=== PATIENT | male | born 1995 | race Caucasian/White ===

== ENCOUNTER 2020-11-15 18:41 | Emergency (ER) | payer OTHER, SELFPAY ==
--- NOTE | 2020-11-15 | ECG_ITS ---
Test Reason : SHORTNESS OF BREATH Blood Pressure : / mmHG Vent. Rate : 064 BPM Atrial Rate : 064 BPM P-R Int : 194 ms QRS Dur : 084 ms QT Int : 356 ms P-R-T Axes : 060 025 024 degrees QTc Int : 367 ms Normal sinus rhythm Normal ECG No previous ECGs available Referred By: Generic ED Physician Electronically Signed By:Segundo Mora
--- NOTE | ~2020-11-15 | XR_ITS ---
EXAMINATION: XR CHEST CLINICAL INFORMATION: Shortness of breath COMPARISON: 02/28/2020 TECHNIQUE: Frontal view of the chest was obtained. FINDINGS: No significant abnormality is noted involving the heart, lungs, mediastinum, bony thorax or soft tissues. XR/XR chest 1V IMPRESSION: Unremarkable examination.
[2020-11-15 19:45] VITALS: BP 134/70; PULSE 68; RESP 18; TEMP 36.9; O2SAT 99; BMI 26.7
--- NOTE | 2020-11-15 21:02 | ED.SOB ---
HPI - SOB/Dyspnea General Chief Complaint: Dyspnea Stated Complaint: sob Time Seen by Provider: 11/15/20 20:15 Source: patient Mode of arrival: ambulatory Limitations: no limitations History of Present Illness HPI Narrative: Patient comes emergency room complaining of shortness of breath for 2 weeks. Patient states he tested positive for COVID-19 on 10/25/2020. Patient complaining of worsening shortness of breath and left-sided sharp chest pain worse with inspirations. Patient is known to be asthmatic, states that shortness of breath is different. Patient denies fever, no vomiting or diarrhea. The patient states he is also on treatment for HIV, does not know his last CD4 count p.m., last time his infectious Disease was over a year ago Related Data Allergies Allergy/AdvReac Type Severity Reaction Status Date / Time ibuprofen [IBUPROFEN] Allergy Unknown SWELLING, Verified 11/15/20 19:44 eye swollen Review of Systems Review of Systems: Constitutional : No Weight loss, No Fever, No Chills, No Night Sweats, No Fatigue, No Malaise ENT/Mouth : No Hearing loss, No Ear Pain, No Nasal Congestion, No Sinus Pain, No Hoarseness, No sore throat, No Rhinorrhea, No Swallowing Difficulty Eyes: No Eye Pain, No Swelling, No Redness, No Foreign Body, No Discharge, No Vision Changes Cardiovascular : Sharp left-sided Chest Pain, No Orthopnea, No Edema, No Palpitations Respiratory : No Cough, No Sputum, intermittent Wheezing, No Smoke Exposure, continues mild shortness of breath Gastrointestinal : No Nausea, No Vomiting, No Diarrhea, No Constipation, No abdominal Pain, No Hematochezia, No Melena Genitourinary : no irregular bleeding, No Dysuria, No Urinary Frequency, No Hematuria, No Urinary Incontinence, No Urgency, No Flank Pain, No Urinary Flow Changes, No Hesitancy Musculoskeletal : No joint pain, No Myalgias, No Joint Swelling Skin : No Skin Lesions, No rash Neuro : No Weakness, No Numbness, No Paresthesias, No Loss of Consciousness, No Dizziness, No Headache Psych : No Anxiety/Panic, No Depression, No SI/HI/AH/VH, No Social Issues, Heme/Lymph: No Bruising, No Bleeding,No Lymphadenopathy Endocrine : No Polyuria, No Polydipsia, No Temperature Intolerance PMFSH Past Medical History Medical History Asthma HIV disease Social History Social History Advance Directives: No Advance Directives Information Provided: Yes Physical Exam Vital Signs: Vital Signs: Last Vital Signs Temp 98.4 F 11/15/20 19:45 Pulse 68 11/15/20 19:45 Resp 18 11/15/20 19:45 BP 134/70 11/15/20 19:45 Pulse Ox 99 11/15/20 19:45 Body Mass Index 26.7 Appearance: Alert. Oriented X3. No acute distress. Eyes: Pupils equal, round and reactive to light. ENT: Pharynx normal. Neck: Normal inspection. Neck supple. No lymph nodes noted. No crepitus CVS: Normal heart rate and rhythm. Pulses normal. Normal S1 and S2 Respiratory: No respiratory distress. Breath sounds normal. No Wheezing. No rales Abdomen: Soft and nontender. No rigidity. No distention. good BS x4 Skin: Skin warm and dry. Normal skin color. Normal skin turgor. Extremities: No lower extremity edema. No lower extremity edema. No Lacerations. No Rash Neuro: Oriented X 3. No motor deficit. No sensory deficit. Moving all extermities. No slurred speech. Course Course Course Narrative: I was informed by the patient's nurse that the patient declined the EKG/blood work, stated that he had a date and needed to leave immediately to get ready for his date. Before patient eloped, I explained to the patient that we were going to the blood work, rule out PE. Patient did not want to get tested for COVID, stated he knows he is positive Discharge Plan Discharge Clinical Impression: Breath shortness, Chest pain Patient Disposition: Elopement
== END 2020-11-15 23:19 | disposition left against medical advice (07) ==
PROVIDERS: Emergency Provider Emergency Medicine; PCP Internal Medicine
DX: R06.02 Shortness of breath (principal); R07.9 Chest pain, unspecified; Z86.16 Personal history of COVID-19
CPT/HCPCS: 71045; 93005; 99283; 99284

== ENCOUNTER 2021-04-27 05:54 | Emergency (ER) | payer OTHER, SELFPAY ==
--- NOTE | ~2021-04-27 | CT_ITS ---
EXAMINATION: CT ABDOMEN AND PELVIS WITH CONTRAST CLINICAL INFORMATION: Umbilical vein, right lower quadrant pain. COMPARISON: CT chest 04/27/2021, chest radiographs 11/15/2020. TECHNIQUE: Multidetector volumetric images were obtained from the superior aspect of the liver through the pubic symphysis following administration 85 mL of Omnipaque 350 intravenous contrast. Sagittal and coronal reformatted images were obtained on the technologist's workstation. CT chest also performed and described in separate report. Oral contrast: No This CT examination was performed using dose optimization techniques as appropriate, variously including the following: *Automated exposure control *Adjustment of mA and/or kV according to patient size (this includes techniques or standardized protocols for targeted exams where dose is matched to indication/reason for exam; i.e. extremities or head) *Use of iterative reconstruction technique DLP: 754 mGy-cm FINDINGS: LUNG BASES: The visualized lung bases are unremarkable. LIVER, GALLBLADDER, AND BILIARY TREE: The liver is normal in size, shape, and attenuation. No focal hepatic lesion or biliary ductal dilatation is present. The gallbladder is unremarkable with no evidence of radiopaque gallstones, gallbladder wall thickening, or obvious pericholecystic inflammatory changes. PANCREAS: Unremarkable. SPLEEN: Within normal size. Incidental splenule left upper quadrant under 1.5 cm. ADRENAL GLANDS: Unremarkable. KIDNEYS AND URETERS: The kidneys are normal in size, shape, and attenuation. No hydronephrosis, hydroureter, or calculi seen. No perinephric stranding. BLADDER: Unremarkable. GASTROINTESTINAL TRACT: There is no bowel obstruction or focal inflammatory changes in the bowel or mesentery. The appendix is normal. There is no ascites or fluid collection. No pneumatosis or free air. There is moderate stool right colon and rectosigmoid. ABDOMINAL WALL: Borderline fat-containing umbilical hernia under 2 cm. LYMPH NODES: No lymphadenopathy. VASCULAR: Unremarkable. PELVIC VISCERA: Unremarkable. OSSEOUS STRUCTURES: Unremarkable. CT/CT abdomen pelvis w con IMPRESSION: 1. No bowel obstruction or focal inflammatory changes. Normal appendix. 2. Borderline fat-containing umbilical hernia under 2 cm. 3. No cholelithiasis or ductal dilatation. 4. No hydronephrosis or perinephric stranding.
--- NOTE | ~2021-04-27 | CT_ITS ---
EXAMINATION: CT CHEST WITH CONTRAST CLINICAL INFORMATION: Cough, positive PPD. COMPARISON: Chest radiograph 11/15/2020. TECHNIQUE: Multidetector volumetric CT imaging of the chest was obtained after the administration of 85 mL of Omnipaque 350 intravenous contrast without immediate adverse reactions. Axial MIP volume rendering provided. Sagittal and coronal reformatted images were obtained. CT abdomen and pelvis also performed for right lower quadrant pain, described in separate report. This CT examination was performed using dose optimization techniques as appropriate, variously including the following: *Automated exposure control *Adjustment of mA and/or kV according to patient size (this includes techniques or standardized protocols for targeted exams where dose is matched to indication/reason for exam; i.e. extremities or head) *Use of iterative reconstruction technique DLP: 456 mGy-cm FINDINGS: LUNGS: The lungs are clear and there is no airspace consolidation or groundglass opacity. No mass or cavitary lesion. 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 The thoracic aorta is normal in caliber. There is no aneurysmal enlargement or dissection. The central vasculature enhances normally. No central pulmonary embolism. Heart size normal. No right ventricular strain or pericardial effusion. No hilar or mediastinal adenopathy. PLEURA: There is no pleural effusion. No pleural mass or thickening. AXILLA: No lymphadenopathy. UPPER ABDOMEN: CT abdomen and pelvis described in separate report. OSSEOUS STRUCTURES: Unremarkable. CT/CT chest w con IMPRESSION: 1. Lungs clear. No hilar or mediastinal adenopathy. 2. 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 3. CT abdomen and pelvis described in separate report.
[2021-04-27 05:58] VITALS: BP 124/87; PULSE 73; RESP 18; TEMP 36.9; O2SAT 99; BMI 26.2
[2021-04-27 06:25] LABS: COVID-19 Test Negative (Negative)
--- NOTE | 2021-04-27 06:48 | P.HPHOSP_ITS ---
History of Present Illness Date of Service: 04/27/21 [facility] Medical History Asthma HIV disease Social History Advance Directives: No Advance Directives Information Provided: No Meds Allergies Allergy/AdvReac Type Severity Reaction Status Date / Time ibuprofen [IBUPROFEN] Allergy Unknown SWELLING, Verified 11/15/20 19:44 eye swollen Physical Exam Vital Signs and Narrative: Vital Signs: Last Vital Signs Temp 98.5 F 04/27/21 05:58 Pulse 73 04/27/21 05:58 Resp 18 04/27/21 05:58 BP 124/87 04/27/21 05:58 Pulse Ox 99 04/27/21 05:58 Body Mass Index 26.2 Results Labs Labs: Laboratory Results - last 24 hr 04/27/21 06:06 COVID-19 ([facility]) Negative COVID-19 Clin Com See Note
--- NOTE | 2021-04-27 08:34 | ED.ABDPAIN ---
HPI - Abdominal Pain General Chief Complaint: Abdominal Pain Stated Complaint: Vomiting Stomach pain Time Seen by Provider: 04/27/21 07:58 Source: patient Mode of arrival: ambulatory Limitations: no limitations History of Present Illness HPI narrative: 25-year-old male HIV positive, viral load below detectable limits, compliant with medications, presents emergency department for evaluation of cough x4 days and abdominal pain. Patient states approximately 2 weeks prior he was taking a shower and when he got out of the shower he had periumbilical pain, states that he was evaluated at urgent care clinic and they did not find a cause for his pain. The pain eventually resolved. He statesthat this morning he developed gradual onset of sharp, periumbilical pain which was intermittent and was 8/10. He also developed a epigastric burning pain that he states feels like his stomach is empty but he was able to eat without difficulty. He denied any nausea but he did have several episodes of vomiting. He denied frequency, urgency or dysuria. The patient states he has had a cough for 4 days. The cough is nonproductive. He has felt nasal congestion. He denied chest pain or shortness of breath. Patient is HIV positive and he states several months ago he had a positive PPD test with a negative chest x-ray. He states that his provider wanted to get a CT scan of his chest but he never followed up to get this test ordered. Patient's vaccinated against COVID-19 with the Moderna vaccine. He got his 2nd vaccination in February of 2021. Related Data Allergies Allergy/AdvReac Type Severity Reaction Status Date / Time ibuprofen [IBUPROFEN] Allergy Unknown SWELLING, Verified 11/15/20 19:44 eye swollen Review of Systems Review of Systems Yes all other systems are reviewed and are negative Physical Exam Vital Signs: Vital Signs: Last Vital Signs Temp 98.1 F 04/27/21 09:16 Pulse 63 04/27/21 09:16 Resp 16 04/27/21 09:16 BP 122/69 04/27/21 09:16 Pulse Ox 99 04/27/21 09:16 Body Mass Index 26.2 Const: General: cooperative and no acute distress Orientation/consciousness: oriented to person and oriented to place Limitations: no limitations HENMT: Head: Yes normal to inspection, Yes normocephalic and Yes atraumatic Ears: external ears normal General nose exam: Normal external nose present Face and sinus: Yes normal facial exam Mouth: Normal oral and palatal mucosa present Throat: Yes posterior oropharynx normal Eyes: General: appearance normal, both eyes and all related structures Pupils: Equal, round and reactive pupils present Neck: Neck: Yes normal visual inspection, Yes no lymphadenopathy, Yes trachea midline and Yes supple Chest: Chest palpation & inspection: normal inspection of the chest and normal palpation of entire chest wall Resp: Effort & Inspection: normal respiratory effort and able to speak in complete sentences Auscultation: clear to auscultation bilaterally Cardio: Rate: regular rate Rhythm: regular rhythm Heart sounds: S1 normal heart sound present, S2 normal heart sound present and no murmurs GI: Inspection: Yes normal to inspection Palpation (GI): Soft to palpation, Tenderness to palpation present (GI) in the RLQ (Moderate), periumbilically (Moderate tenderness, small tender mass noted) and suprapubicly (Moderate); Negative for not in the RUQ and no guarding Auscultation: normal bowel sounds : General: Yes no CVA tenderness Back/Spine/Pelvis: Back: no CVA tenderness Skin: General skin exam: no rashes or lesions noted Neuro: General: oriented to person and oriented to place Cranial nerves: Yes CN's II-XII intact bilaterally and Yes Equal, round and reactive pupils present Cognition (Neuro): normal cognition Motor exam (neuro): 5/5 motor strength present throughout Extrem: General: Yes normal to inspection Psych: Appearance: grossly normal Speech and movement: Normal speech and movement present Affect: normal affect Attitude: cooperative Thought process: Normal thought process present Thought content: Normal thought content present Course Course Course Narrative: 25-year-old male HIV positive, recently PPD positive with a negative chest x-ray, vaccinated for COVID-19 who presents to the emergency department for cough x4 days and abdominal pain. Vital signs were normal. Abdominal exam did reveal right lower quadrant and suprapubic tenderness. He also has umbilical tenderness with a small palpable mass. Given the patient's cough and abdominal pain, , I ordered a CT scan of the chest with IV contrast and a CT scan of the abdomen and pelvis with IV contrast as well. Laboratory evaluation was also ordered to include CBC, CMP, lipase, urinalysis. COVID-19 test was also ordered. Patient's pain will be treated with morphine 4 mg IV and Zofran 4 mg IV. Is also ordered to get normal saline x1 L. 1212: The patient's laboratory evaluation was unremarkable. Urinalysis was negative. CT scan of the chest revealed no acute process. The patient's CT scan of the abdomen pelvis revealed a small umbilical hernia was containing fat only. The patient's pain resolved with the above treatment. The patient will be referred to the on-call surgeon for evaluation of the umbilical hernia. The patient will be referred back to his infectious disease doctor determine if he needs further treatment of his positive PPD. the patient was advised to take Tylenol and ibuprofen for his pain, he was discharged with verbal and printed instructions. MDM - Abdominal Pain Lab Data Result diagrams: 04/27/21 09:38 04/27/21 09:38 Labs: Lab Results 04/27/21 04/27/21 04/27/21 Range/Units 06:06 09:38 09:38 WBC 7.1 (4.8-10.8) X10*3/uL RBC 4.98 (4.60-5.80) X10*6/uL Hgb 14.5 (14.0-18.0) g/dl Hct 42.4 (42-52) % MCV 85.1 (80-98) fL MCH 29.1 (27.0-33.0) pg MCHC 34.2 (31.0-36.0) g/dl RDW 12.4 (11.0-16.0) % Plt Count 160 (160-400) X10*3/uL MPV 10.7 (9.4-12.4) fL Immature Gran % (Auto) 0.3 (0.0-0.4) % Neut % (Auto) 68.8 (45-73) % Lymph % (Auto) 21.4 (20-40) % [place] % (Auto) 6.9 (2-11) % Eos % (Auto) 2.3 (0-4) % Baso % (Auto) 0.3 (0-2) % Lymph # (Auto) 1.5 (1.2-4.9) X10*3/uL [place] # (Auto) 0.5 (0.1-1.2) X10*3/uL Eos # (Auto) 0.2 (0.0-0.4) X10*3/uL Baso # (Auto) 0.0 (0.0-0.2) X10*3/uL Abs Immat Gran (auto) 0.02 (0.00-0.03) X10*3/uL Absolute Neuts (auto) 4.9 (2.0-8.3) X10*3/uL Absolute Nucleated RBC 0.000 (0.0-0.012) X10*3/uL Nucleated RBC % (auto) 0.0 (0.0-0.2) /100WBC Sodium 139 (135-145) mmol/L Potassium 3.8 (3.3-5.1) mmol/L Chloride 106 (96-108) mmol/L Carbon Dioxide 26 (22-29) mmol/L Anion Gap 11 L (12-20) BUN 12 (9-16) mg/dL Creatinine 0.90 (0.5-1.4) mg/dL Estim Creat Clear Calc 152.7 Estimated GFR > 60 Random Glucose 93 (60-115) mg/dL Calcium 9.4 (8.4-10.2) mg/dL Total Bilirubin 0.6 (0.0-1.0) mg/dL AST 17 (5-37) U/L ALT 16 (0-40) U/L Alkaline Phosphatase 85 (39-117) U/L Total Protein 7.4 (6.5-8.0) g/dL Albumin 4.6 (3.5-5.0) g/dL Lipase 6 L (8-78) U/L Urine Color Urine Appearance Urine pH (5.0-8.0) Ur Specific [place] (1.005-1.025) Urine Protein (NEG-TRACE) MG/DL Urine Glucose (UA) (NEG) MG/DL Urine Ketones (NEG) MG/DL Urine Blood (NEG) Urine Nitrite (NEG) Ur Leukocyte Esterase (NEG) COVID-19 ([facility]) Negative (Negative) COVID-19 Clin Com See Note 04/27/21 Range/Units 09:38 WBC (4.8-10.8) X10*3/uL RBC (4.60-5.80) X10*6/uL Hgb (14.0-18.0) g/dl Hct (42-52) % MCV (80-98) fL MCH (27.0-33.0) pg MCHC (31.0-36.0) g/dl RDW (11.0-16.0) % Plt Count (160-400) X10*3/uL MPV (9.4-12.4) fL Immature Gran % (Auto) (0.0-0.4) % Neut % (Auto) (45-73) % Lymph % (Auto) (20-40) % [place] % (Auto) (2-11) % Eos % (Auto) (0-4) % Baso % (Auto) (0-2) % Lymph # (Auto) (1.2-4.9) X10*3/uL [place] # (Auto) (0.1-1.2) X10*3/uL Eos # (Auto) (0.0-0.4) X10*3/uL Baso # (Auto) (0.0-0.2) X10*3/uL Abs Immat Gran (auto) (0.00-0.03) X10*3/uL Absolute Neuts (auto) (2.0-8.3) X10*3/uL Absolute Nucleated RBC (0.0-0.012) X10*3/uL Nucleated RBC % (auto) (0.0-0.2) /100WBC Sodium (135-145) mmol/L Potassium (3.3-5.1) mmol/L Chloride (96-108) mmol/L Carbon Dioxide (22-29) mmol/L Anion Gap (12-20) BUN (9-16) mg/dL Creatinine (0.5-1.4) mg/dL Estim Creat Clear Calc Estimated GFR Random Glucose (60-115) mg/dL Calcium (8.4-10.2) mg/dL Total Bilirubin (0.0-1.0) mg/dL AST (5-37) U/L ALT (0-40) U/L Alkaline Phosphatase (39-117) U/L Total Protein (6.5-8.0) g/dL Albumin (3.5-5.0) g/dL Lipase (8-78) U/L Urine Color YELLOW Urine Appearance CLEAR Urine pH 7.5 (5.0-8.0) Ur Specific [place] 1.020 (1.005-1.025) Urine Protein NEG (NEG-TRACE) MG/DL Urine Glucose (UA) NEG (NEG) MG/DL Urine Ketones NEG (NEG) MG/DL Urine Blood NEG (NEG) Urine Nitrite NEG (NEG) Ur Leukocyte Esterase NEG (NEG) COVID-19 ([facility]) (Negative) COVID-19 Clin Com Discharge Plan Discharge Clinical Impression: Abdominal pain, Hernia, umbilical Patient Disposition: Home, Self-Care Instructions: Umbilical Hernia (ED) Additional Instructions: Your laboratory evaluation was normal. Your urine test was normal. The CT scan of your abdomen pelvis with IV contrast did reveal a normal appendix without a clear cause for your pain in your lower abdomen The CT scan of your abdomen pelvis with IV contrast did reveal an umbilical hernia that is containing fat only, there is no bowel in this hernia at this time. Please follow-up with our on-call surgeon to discuss further management of this hernia. A hernia that does not contain bowel is usually just managed with pain medications however sometimes surgery is necessary. The CT scan of your chest with IV contrast did not reveal any significant infection. You should discuss this finding with your infectious disease doctor and your infectious disease doctor will need to determine if you need medications for your positive PPD (possible tuberculosis exposure). Take ibuprofen 200 mg pills, 3 pills every 6 hours as needed for pain. Take Tylenol (acetaminophen) 500 mg pills, 2 pills every 4 to 6 hours as needed for pain. Follow-up with your doctor in 2 days. Please return to the emergency department if your symptoms get worse or if you develop any symptoms that are concerning to you. Referrals: Bronson Quarles MD [Physician] - 2 weeks [facility] Past Medical History [facility] Narrative: Social history: The patient occasionally smokes cigarettes. He denies alcohol use. He states that he injects cocaine occasionally. He also smokes marijuana. Source: unable to obtain Medical History Asthma HIV disease Social History Social History Advance Directives: No Advance Directives Information Provided: No
[2021-04-27 09:16] VITALS: BP 122/69; PULSE 63; RESP 16; TEMP 36.7; O2SAT 99
[2021-04-27 09:45] LABS: MANUAL DIFF FLAG NO
[2021-04-27] MEDS: ondansetron HCL 4 MG/2 ML VIAL IVPUSH (09:46)
[2021-04-27] MEDS: Morphine Sulfate 4 MG/ML CARTRIDGE IVPUSH (09:46)
[2021-04-27] MEDS: 0.9 % Sodium Chloride 1,000 ML 999 ML IV (09:47)
[2021-04-27 09:52] LABS: Basophils Percent Auto 0.3 % (0-2); Eosinophils Absolute Auto 0.2 X10*3/uL (0.0-0.4); Eosinophils Percent Auto 2.3 % (0-4); Hematocrit 42.4 % (42-52); Hemoglobin 14.5 g/dl (14.0-18.0); Imm Gran Abs Auto 0.02 X10*3/uL (0.00-0.03); Imm Gran Pct Auto 0.3 % (0.0-0.4); Lymphocytes Absolute Auto 1.5 X10*3/uL (1.2-4.9); Lymphocytes Percent Auto 21.4 % (20-40); Mean Corpuscular HGB Conc 34.2 g/dl (31.0-36.0); Mean Corpuscular Hemoglobin 29.1 pg (27.0-33.0); Mean Corpuscular Volume 85.1 fL (80-98); Mean Platelet Volume 10.7 fL (9.4-12.4); Monocytes Absolute Auto 0.5 X10*3/uL (0.1-1.2); Monocytes Percent Auto 6.9 % (2-11); Neutrophils Absolute Auto 4.9 X10*3/uL (2.0-8.3); Neutrophils Percent Auto 68.8 % (45-73); Platelet Count 160 X10*3/uL (160-400); Red Blood Count 4.98 X10*6/uL (4.60-5.80); Red Cell Distribution Width 12.4 % (11.0-16.0); White Blood Count 7.1 X10*3/uL (4.8-10.8)
[2021-04-27 09:56] LABS: Appearance Urine CLEAR; Color Urine YELLOW; Glucose Urine UA NEG (NEG); Leukocyte Esterase Urine NEG (NEG); Nitrite Urine NEG (NEG); PH 7.5 (5.0-8.0); Urine Blood NEG (NEG); Urine Ketones NEG (NEG); Urine Protein NEG (NEG-TRACE)
[2021-04-27 10:21] LABS: Alanine Aminotransferase 16 U/L (0-40); Albumin Level 4.6 g/dL (3.5-5.0); Alkaline Phosphatase 85 U/L (39-117); Anion Gap 11 (12-20); Aspartate Amino Transferase 17 U/L (5-37); Bilirubin Total 0.6 mg/dL (0.0-1.0); Blood Urea Nitrogen 12 mg/dL (9-16); Calcium 9.4 mg/dL (8.4-10.2); Carbon Dioxide 26 mmol/L (22-29); Chloride 106 mmol/L (96-108); Creatinine Clr Calc Pharmacy 152.7; Estimated Glomerular Filt Rate > 60; Glucose Random 93 mg/dL (60-115); Lipase 6 U/L (8-78); Potassium 3.8 mmol/L (3.3-5.1); Sodium 139 mmol/L (135-145); Total Protein 7.4 g/dL (6.5-8.0)
[2021-04-27] MEDS: iohexoL 350 MG/ML 100 ML INFUS..BTL IV (11:04)
== END 2021-04-27 13:43 | disposition home or self-care (01) ==
PROVIDERS: Emergency Provider Emergency Medicine Emergency Medical Services; PCP Internal Medicine
DX: K42.9 Umbilical hernia without obstruction or gangrene (principal); R05.9 Cough, unspecified; R10.9 Unspecified abdominal pain; R11.10 Vomiting, unspecified; Z20.822 Contact with and (suspected) exposure to COVID-19; Z79.899 Other long term (current) drug therapy
CPT/HCPCS: 36415; 71260; 74177; 80053; 81003; 83690; 85025; 87635; 96361; 96374; 96375; 99284; J2270; J2405; Q9967

== ENCOUNTER 2023-08-16 17:41 | Emergency (ER) | payer MEDICAID, SELFPAY ==
--- NOTE | 2023-08-16 17:58 | ECG_ITS ---
Test Reason : SYNCOPE Blood Pressure : / mmHG Vent. Rate : 066 BPM Atrial Rate : 066 BPM P-R Int : 230 ms QRS Dur : 086 ms QT Int : 376 ms P-R-T Axes : 051 046 015 degrees QTc Int : 394 ms Sinus rhythm with 1st degree A-V block Otherwise normal ECG When compared with ECG of 15-NOV-2020 20:19, CA interval has increased Referred By: Ana Shelton Electronically Signed By:ITZ CALVIN
[2023-08-16 17:59] VITALS: BP 114/62; BP 99/65; PULSE 58; PULSE 60; RESP 16; TEMP 36.7; O2SAT 100; BMI 23.1
[2023-08-16 18:05] VITALS: O2SAT 99
--- NOTE | 2023-08-16 18:05 | ED.SYNCOPE ---
HPI - Syncope General Chief Complaint: Syncope Stated Complaint: syncopal episode @ health center Time Seen by Provider: 08/16/23 17:51 Source: patient Mode of arrival: ambulatory History of Present Illness HPI narrative: 27-year-old male with history of HIV and currently on Biktarvy and reports that his numbers have been within normal range who arrives after experiencing a feeling of hot flushes and then feeling cool and clammy and somewhat lightheaded while waiting to lemon picker his medications at the pharmacy and then when his name was called he felt very weak and sat down on the ground but did not fall. Patient denies any recent illnesses but does endorse smoking weed and at times using cocaine (reports that this was last 2 days ago) and the marijuana was about 30 minutes prior to this event. He denies any recent medication changes or change in medication doses. Related Data Allergies Allergy/AdvReac Type Severity Reaction Status Date / Time ibuprofen [IBUPROFEN] Allergy Unknown SWELLING, Verified 11/15/20 19:44 eye swollen Review of Systems Review of Systems: Pertinent positives and negatives as stated in HPI PMFSH Past Medical History Source: nursing notes reviewed Medical History HIV disease Asthma Social History Social History Smoked in Last 30 Days: Yes Use of substances other than those prescribed or required for medical reasons: Yes Substance Use Type: Crack/Cocaine and Marijuana Substance Use Frequency: Daily Substance Use Frequency Other:: coke 2-3 times per week Last Used Substance: Just Prior to Admission Any prior treatment program specific to substance use: No Advance Directives: No Advance Directives Information Provided: No Physical Exam Vital Signs: Vital Signs: Last Vital Signs Temp 98.0 F 08/16/23 17:59 Pulse 76 08/16/23 19:11 Resp 16 08/16/23 17:59 BP 107/58 L 08/16/23 19:11 Pulse Ox 99 08/16/23 18:05 O2 Del Method Room Air 08/16/23 18:05 BMI result Body Mass Index 23.1 VITAL SIGNS: Reviewed. GENERAL: Well developed, well nourished, in no acute distress. HEAD: Normocephalic/atraumatic EYES: PERRLA, EOMI EARS: Ext canals without abnormality, TMs non-bulging and non-erythematous NOSE: Nasal congestion OROPHARYNX: no oral lesions noted, posterior pharynx clear and non-erythematous without noted tonsillar enlargement/erythema/exudates NECK: Supple, no adenopathy LUNGS: Normal breath sounds. No adventitious sounds or accessory muscle use. SpO2<100> CARDIOVASCULAR: Regular rate and rhythm without noted murmurs ABDOMEN: Soft, non-tender, non-distended with bowel sounds. MUSCULOSKELETAL: No tenderness, deformities, or effusions noted on gross inspection. EXTREMITIES: No cyanosis, clubbing or edema. SKIN: Inspection of the skin reveals no rashes NEUROLOGIC: Alert and oriented x 4. Strength and sensation to light touch were grossly intact x 4. Medical Decision Making Medical Decision Making [facility] Narrative: 1805: 27-year-old male with history and clinical presentation, DDX: Vasovagal syncope, infection/anemia/electrolytes/arrhythmia rule out, viral illness I reviewed all investigations and there is no leukocytosis or left shift, there is a trace thrombocytopenia which appears to be present intermittently, there is a normocytic anemia without history or clinical findings to suggest acute bleeding. Chemistry indices do not demonstrate any BHAVIN or electrolyte/liver enzyme derangements. Urinalysis is negative for UTI or hematuria. Viral testing is negative for COVID-19/influenza. My interpretation is that patient may have experienced a vasovagal syncopal episode secondary to multifactorial and could have been a combination of recent marijuana ingestion with volume load as patient does appear to be mildly volume depleted but is able to rehydrate on his own and he was strongly encouraged to drink plenty of fluids. Differential Diagnosis Differential Diagnoses: The differential diagnosis associated with the presentation includes Please see the discussion above Admission/Observation Consideration of admission/observation: Escalation of care including admission/observation considered Please see the discussion above Lab Data [facility] Lab Attestation statement: I reviewed the patient's lab results. Please see the discussion above 08/16/23 18:21 08/16/23 18:21 Labs: Lab Results 08/16/23 08/16/23 08/16/23 Range/Units 18:16 18:21 19:24 WBC 6.9 (4.8-10.8) X10*3/uL RBC 4.36 L (4.60-5.80) X10*6/uL Hgb 13.0 L (14.0-18.0) g/dl Hct 37.9 L (42.0-52.0) % MCV 86.9 (80.0-98.0) fL MCH 29.8 (27.0-33.0) pg MCHC 34.3 (31.0-36.0) g/dl RDW 12.1 (11.0-16.0) % Plt Count 155 L (160-400) X10*3/uL MPV 11.0 (9.4-12.4) fL Immature Gran % (Auto) 0.3 (0.0-0.4) % Neut % (Auto) 60.7 (45-73) % Lymph % (Auto) 28.9 (20-40) % Clarke % (Auto) 7.6 (2-11) % Eos % (Auto) 1.9 (0-4) % Baso % (Auto) 0.6 (0-2) % Lymph # (Auto) 2.0 (1.2-4.9) X10*3/uL Clarke # (Auto) 0.5 (0.1-1.2) X10*3/uL Eos # (Auto) 0.1 (0.0-0.4) X10*3/uL Baso # (Auto) 0.0 (0.0-0.2) X10*3/uL Abs Immat Gran (auto) 0.02 (0.00-0.03) X10*3/uL Absolute Neuts (auto) 4.2 (2.0-8.3) x10*3/uL Absolute Nucleated RBC 0.000 (0.0-0.012) X10*3/uL Nucleated RBC % (auto) 0.0 (0.0-0.2) /100WBC Sodium 141 (135-145) mmol/L Potassium 3.6 (3.3-5.1) mmol/L Chloride 108 (96-108) mmol/L Carbon Dioxide 28 (22-29) mmol/L Anion Gap 9 L (12-20) BUN 13 (9-16) mg/dL Creatinine 0.88 (0.5-1.4) mg/dL Estim Creat Clear Calc 144.3 Estimated GFR > 60 Random Glucose 105 (60-115) mg/dL Calcium 8.9 (8.4-10.2) mg/dL Total Bilirubin 0.4 (0.0-1.0) mg/dL AST 12 (5-37) U/L ALT 11 (0-40) U/L Alkaline Phosphatase 66 (39-117) U/L Total Protein 6.8 (6.5-8.0) g/dL Albumin 4.2 (3.5-5.0) g/dL Urine Color Yellow Urine Appearance Cloudy Urine pH 6.0 (5.0-9.0) Ur Specific [place] >= 1.030 H (1.005-1.025) Urine Protein Trace (Neg-Trace) mg/dL Urine Glucose (UA) Negative (Negative) mg/dL Urine Ketones Negative (Negative) mg/dL Urine Blood Negative (Negative) Urine Nitrite Negative (Negative) Ur Leukocyte Esterase Negative (Negative) COVID-19 (SALOME) Negative (Negative) COVID-19 Clin Com See Note Influenza Type A (ROSEMARY) Negative (Negative) Influenza Type B (ROSEMARY) Negative (Negative) Influenza A & B Note See Note Independent Interpretation I performed an independent interpretation of an: EKG Interpretation: Sinus rhythm with first-degree AV block, HR-66, no STEMI, WY-230 and this is new although on prior EKG 194, QRS/QTC is within normal limits. External Record Review External record reviewed: Outpatient record, Prior outpatient labs and Prior outpatient radiology Chronic Conditions Patient?s care impacted by: Other HIV Critical Care Time Critical Care Time Critical Care Time: Yes Total Critical Care Time: 30 Attestation: I personally attest to this time spent taking care of the patient. Discharge Plan Discharge Clinical Impression: Vasovagal syncope, Dehydration Patient Disposition: Home, Self-Care Instructions: Dehydration (ED), Near Syncope (ED) Additional Instructions: 1. Resume all home medications as prescribed. 2. Continue to drink plenty of water. 3. Please follow-up with primary care doctor on Saturday morning. Return to the ER for any worsening symptoms. Referrals: Lili Lora MD [Primary Care Provider] -
[2023-08-16 18:07] VITALS: BP 117/55; PULSE 61
[2023-08-16 18:24] LABS: MANUAL DIFF FLAG NO
[2023-08-16 18:26] LABS: Basophils Percent Auto 0.6 % (0-2); Eosinophils Absolute Auto 0.1 X10*3/uL (0.0-0.4); Eosinophils Percent Auto 1.9 % (0-4); Hematocrit 37.9 % (42.0-52.0); Imm Gran Abs Auto 0.02 X10*3/uL (0.00-0.03); Imm Gran Pct Auto 0.3 % (0.0-0.4); Lymphocytes Percent Auto 28.9 % (20-40); Mean Corpuscular HGB Conc 34.3 g/dl (31.0-36.0); Mean Corpuscular Hemoglobin 29.8 pg (27.0-33.0); Mean Corpuscular Volume 86.9 fL (80.0-98.0); Monocytes Absolute Auto 0.5 X10*3/uL (0.1-1.2); Monocytes Percent Auto 7.6 % (2-11); Neutrophils Absolute Auto 4.2 x10*3/uL (2.0-8.3); Neutrophils Percent Auto 60.7 % (45-73); Platelet Count 155 X10*3/uL (160-400); Red Blood Count 4.36 X10*6/uL (4.60-5.80); Red Cell Distribution Width 12.1 % (11.0-16.0); White Blood Count 6.9 X10*3/uL (4.8-10.8)
[2023-08-16 18:38] LABS: COVID-19 Test Negative (Negative); IDNOW Serial# 152EDE1D
[2023-08-16 18:39] LABS: Alanine Aminotransferase 11 U/L (0-40); Albumin Level 4.2 g/dL (3.5-5.0); Alkaline Phosphatase 66 U/L (39-117); Anion Gap 9 (12-20); Aspartate Amino Transferase 12 U/L (5-37); Bilirubin Total 0.4 mg/dL (0.0-1.0); Blood Urea Nitrogen 13 mg/dL (9-16); Calcium 8.9 mg/dL (8.4-10.2); Carbon Dioxide 28 mmol/L (22-29); Chloride 108 mmol/L (96-108); Creatinine Clr Calc Pharmacy 144.3; Estimated Glomerular Filt Rate > 60; Glucose Random 105 mg/dL (60-115); Potassium 3.6 mmol/L (3.3-5.1); Sodium 141 mmol/L (135-145); Total Protein 6.8 g/dL (6.5-8.0)
[2023-08-16 18:40] LABS: IDNOW Serial# 08D9AD1C; Influenza A Negative (Negative); Influenza B2 Negative (Negative)
[2023-08-16 19:09] VITALS: BP 104/61; PULSE 68
[2023-08-16 19:11] VITALS: BP 107/58; PULSE 76
[2023-08-16 19:38] LABS: Appearance Urine Cloudy; Color Urine Yellow; Glucose Urine UA Negative (Negative); Leukocyte Esterase Urine Negative (Negative); Nitrite Urine Negative (Negative); Specific Gravity - Urine >= 1.030 (1.005-1.025); Urine Blood Negative (Negative); Urine Ketones Negative (Negative); Urine Protein Trace mg/dL (Neg-Trace)
== END 2023-08-16 21:07 | disposition home or self-care (01) ==
PROVIDERS: Emergency Provider Student in an Organized Health Care Education/Training Program; PCP Internal Medicine
DX: R55 Syncope and collapse (principal); E86.0 Dehydration; B20 Human immunodeficiency virus [HIV] disease
CPT/HCPCS: 36415; 80053; 81003; 85025; 87502; 87635; 93005; 99283; 99284

== ENCOUNTER → 2023-08-16 17:58 | Outpatient (BNV) | payer MEDICAID, SELFPAY | PROVIDERS: Emergency Provider Student in an Organized Health Care Education/Training Program; PCP Internal Medicine; Visit Provider Internal Medicine | DX: I44.0 Atrioventricular block, first degree (principal) | CPT/HCPCS: 93010 ==